=== PATIENT | female | born 1995 | race Two or more races ===

== ENCOUNTER 2022-07-27 14:52 | Inpatient (IN) | payer MEDICAID ==
[~2022-07-27] VITALS: Ht 162.6 cm; Wt 86.6 kg
--- NOTE | 2022-07-27 14:53 | NUR ---
TO ER BED 16, BIBRA 889 FROM HOME C/O LOWER ABDOMINAL PAIN X 3 HOURS. DENIES NAUSEA VOMITTING, DIARRHEA. 10/10 ON PAIN SCALE, AAOX4, BREATHING EVEN AND NON LABORED, AWAITING MD ORDERS
[2022-07-27] MEDS ORDERED: ACETAMINOPHEN ES 500 MG TABLET ONE (15:23)
[2022-07-27] MEDS ORDERED: ACETAMINOPHEN ES 500 MG TABLET PO ONE (15:30)
--- NOTE | 2022-07-27 15:32 | NUR ---
ESTABLISHED IV ACCESS 22G ON LEFT WRIST. BLOOD DRAWN AND SENT TO LAB.
[2022-07-27 15:51] LABS: BASOPHILS # (AUTO) 0.1 K/uL (0.0-0.2); BASOPHILS % (AUTO) 0.3 % (0.0-2.0); HEMATOCRIT 40 % (33-45); HEMOGLOBIN 12.9 g/dL (11.5-14.8); LYMPHOCYTES # (AUTO) 1.2 K/uL (0.8-4.8); LYMPHOCYTES % (AUTO) 5.1 % (20.0-44.0); MEAN CORPUSCULAR HGB CONC 33 g/dl (31.0-36.0); MEAN CORPUSCULAR VOLUME 86 fL (82-100); MONOCYTES # (AUTO) 0.6 K/uL (0.1-1.30); MONOCYTES % (AUTO) 2.5 % (2.0-12.0); NEUTROPHILS # (AUTO) 20.8 K/uL (1.8-8.9); NEUTROPHILS % (AUTO) 92.1 % (43.0-81.0); PLATELET COUNT (AUTO) 377 K/uL (150-450); RED BLOOD CELL COUNT(AUTO) 4.58 MIL/uL (4.0-5.2); WHITE BLOOD COUNT (AUTO) 22.6 K/uL (4.3-11.0)
[2022-07-27 16:06] LABS: CALCIUM, SERUM 9.2 mg/dL (8.5-10.1); CREATININE 0.6 mg/dL (0.6-1.3); POTASSIUM 4.8 mmol/L (3.5-5.1)
[2022-07-27 16:12] LABS: ALBUMIN 4.1 g/dL (3.4-5.0); BILIRUBIN,DIRECT 0.1 mg/dL (0.0-0.2); BILIRUBIN,TOTAL 0.5 mg/dL (0.2-1.0); TOTAL PROTEIN, SERUM 8.3 g/dL (6.4-8.2)
[2022-07-27] MEDS ORDERED: MORPHINE SULFATE INJ 2 MG/ML DISP.SYRIN IV ONE (16:30)
[2022-07-27] MEDS ORDERED: MORPHINE SULFATE INJ 4 MG/ML DISP.SYRIN ONE (16:31)
--- NOTE | 2022-07-27 16:59 | NUR ---
URINE COLLECTED AND SENT TO LAB
[2022-07-27] MEDS ORDERED: IV NS 0.9% 1,000 ML IV ONE ×2 (17:30→21:00)
[2022-07-27 17:31] LABS: BILIRUBIN,URINE 1+ (NEGATIVE); COLOR,URINE YELLOW (YELLOW); LEUKOCYTE ESTERASE ,URINE NEGATIVE (NEGATIVE); NITRITE, URINE NEGATIVE (NEGATIVE); PH,URINE 6.5 (5.0-8.0); PROTEIN,URINE NEGATIVE (NEGATIVE); UGLUCOSE NEGATIVE (NEGATIVE); UROBILINOGEN,URINE 0.2 EU/dL (0.2)
[2022-07-27 19:00] LABS: BACTERIA,URINE Moderate /HPF (None Seen); RBC,URINE 0-2 /HPF (0-2); SQUAMOUS EPITHELIAL CELL,UR Moderate /HPF (None Seen); WBC,URINE NONE SEEN /HPF (0-3)
[2022-07-27] MEDS ORDERED: TYL2T PO (19:16)
[2022-07-27] MEDS ORDERED: ONDA4TAB5 PO (19:16)
--- NOTE | 2022-07-27 20:52 | NUR ---
BP 85/51; DR. LAW SCHWARTZ AWARE
--- NOTE | 2022-07-27 21:40 | NUR ---
DR PRICE ON THE PHONE WITH DR WAN FOR OB CONSULT
--- NOTE | 2022-07-27 22:25 | NUR ---
BLOOD CONSENT FORM SIGNED BY PT
[2022-07-27 22:48] LABS: BASOPHILS % (AUTO) 0.2 % (0.0-2.0); EOSINOPHILS % (AUTO) 0.3 % (0.0-6.0); HEMATOCRIT 31 % (33-45); HEMOGLOBIN 10.3 g/dL (11.5-14.8); LYMPHOCYTES # (AUTO) 2.3 K/uL (0.8-4.8); LYMPHOCYTES % (AUTO) 15.3 % (20.0-44.0); MEAN CORPUSCULAR HGB CONC 33 g/dl (31.0-36.0); MEAN CORPUSCULAR VOLUME 85 fL (82-100); MONOCYTES # (AUTO) 0.6 K/uL (0.1-1.30); MONOCYTES % (AUTO) 4.2 % (2.0-12.0); PLATELET COUNT (AUTO) 309 K/uL (150-450); RED BLOOD CELL COUNT(AUTO) 3.67 MIL/uL (4.0-5.2)
--- NOTE | 2022-07-27 23:01 | NUR ---
DR PRICE ON THE PHONE WITH DR WAN
--- NOTE | 2022-07-27 23:11 | NUR ---
ADMINISTERED RHOGAM R DELTOID IM. VSS.
--- NOTE | 2022-07-27 23:18 | NUR ---
COVID ANTIGEN SWAB COLLECTED AND SENT TO LAB
[2022-07-28] MEDS ORDERED: ONDANSETRON HCL/PF 4 MG/2 ML VIAL IVP PRN
[2022-07-28] MEDS ORDERED: Z GUARD REMEDY 4 OZ OINT TP PRN
[2022-07-28] MEDS ORDERED: MAGNESIUM HYDROXIDE 30 ML UDC PO PRN
[2022-07-28] MEDS ORDERED: MAG HYDROX/AL HYDROX/SIMETH 30 ML UDC PO PRN
[2022-07-28] MEDS ORDERED: MORPHINE SULFATE INJ 2 MG/ML DISP.SYRIN IV PRN
--- NOTE | 2022-07-28 00:45 | NUR ---
REPORT GIVEN TO November RN FOR [facility]
--- NOTE | 2022-07-28 02:12 | NUR ---
PT TRANSFERRING TO [facility] VIA HOSPITAL PROTOCOL. VSS. ALL BELONGINGS WITH PT.
[2022-07-28 02:30] VITALS: BP 101/50
[2022-07-28] MEDS: ACETAMINOPHEN 325 MG TABLET PO PRN ×2 (02:51→16:25)
--- NOTE | 2022-07-28 03:25 | NUR ---
MS RUBBER TIRE AND TUBES SUPERVISOR NOTES - RECEIVED PATIENT FROM ED VIA GURNEY AT 0215 UNDER THE CARE OF SUJATA LENNON NP WITH DX OF ACUTE PELVIC PAIN SECONDARY TO POSSIBLE THREATENED OR MISSED MISCARRIAGE. PATIENT IS A/O X4, GREEN[place] SPEAKING. BREATHING EVEN AND NON-LABORED ON ROOM AIR. NOT IN APPARENT DISTRESS. VERBALIZED LOWER ABDOMINAL PAIN /. DENIES ACTIVE BLEEDING. HAS LEFT WRIST IV ACCESS #22G AND SALINE LOCKED. NO S/S OF INFILTRATION NOTED. PHYSICAL ASSESSMENT DONE, NO SKIN ISSUES. ALL BELONGINGS ACCOUNTED FOR. ORIENTED PATIENT TO UNIT AND STAFF. BSC PROVIDED. SAFETY PRECAUTIONS IN PLACE: BED LOCKED AND IN LOWEST POSITION, SIDE RAILS UP X2, CALL LIGHT WITHIN REACH. WILL CONTINUE PLAN OF CARE.
[2022-07-28 06:36] LABS: BASOPHILS % (AUTO) 0.4 % (0.0-2.0); EOSINOPHILS % (AUTO) 1.4 % (0.0-6.0); HEMATOCRIT 34 % (33-45); HEMOGLOBIN 11.1 g/dL (11.5-14.8); LYMPHOCYTES # (AUTO) 2.8 K/uL (0.8-4.8); LYMPHOCYTES % (AUTO) 25.9 % (20.0-44.0); MEAN CORPUSCULAR HGB CONC 33 g/dl (31.0-36.0); MEAN CORPUSCULAR VOLUME 86 fL (82-100); MONOCYTES # (AUTO) 0.7 K/uL (0.1-1.30); MONOCYTES % (AUTO) 6.4 % (2.0-12.0); NEUTROPHILS # (AUTO) 7.1 K/uL (1.8-8.9); NEUTROPHILS % (AUTO) 65.9 % (43.0-81.0); PLATELET COUNT (AUTO) 340 K/uL (150-450); RED BLOOD CELL COUNT(AUTO) 3.95 MIL/uL (4.0-5.2); WHITE BLOOD COUNT (AUTO) 10.8 K/uL (4.3-11.0)
--- NOTE | 2022-07-28 06:45 | NUR ---
MS RN CLOSING NOTES - PATIENT SLEEPING IN BED, EASY TO AROUSE. ABLE TO VERBALIZE NEEDS. NO SOB OR NOTED. NO ACUTE DISTRESS THROUGHOUT THE NIGHT. NO C/O PAIN OR DISCOMFORT AT THIS TIME. AFEBRILE. LEFT WRIST IV ACCESS INTACT, PATENT AND FLUSHING. ALL DUE MEDS GIVEN AND NEEDS ATTENDED. SAFETY PRECAUTIONS MAINTAINED. WILL ENDORSE TO NEXT SHIFT FOR [facility].
[2022-07-28 07:08] LABS: CALCIUM, SERUM 8.3 mg/dL (8.5-10.1); CREATININE 0.6 mg/dL (0.6-1.3); PHOSPHORUS 3.2 mg/dL (2.5-4.9); POTASSIUM 3.7 mmol/L (3.5-5.1)
[2022-07-28] MEDS ORDERED: PANTOPRAZOLE 40 MG TABLET.DR PO SCH (07:30)
[2022-07-28 08:00] VITALS: BP 97/44
--- NOTE | 2022-07-28 09:52 | NUR ---
A&OX4. ROOM AIR. DENIES PAIN TO PELVIC. NO BLEEDING NOTED. AMBULATE TO AND FROM BATHROOM WITH STANDBY ASSIST. ATE 85% OF BREAKFAST, NO S/S OF N/V NOTED. CURRENTLY IN BED IN SEMI- WOODS POSITION. CALL BUTT WITHIN REACH. NO CONCERNS NOTED. SUMA Bhandari RN
[2022-07-28 15:30] VITALS: BP 110/61
[2022-07-28 16:00] VITALS: BP_SYST 110; BP_SYST 158; BP_DIAS 61; BP_DIAS 86
--- NOTE | 2022-07-28 18:46 | NUR ---
DISCHARGED TO HOME. ALERT AND ABLE TO MAKE NEEDS KNOWN UPON DISCHARGE. MEDICATED FOR PAIN TO PELVIC AREA WITH TYLENOL, THERAPEUTIC EFFECTS NOTED. NO VAGINAL BLEEDING NOTED. DISCHARGE INSTRUCTIONS GIVEN AT BEDSIDE WITH SPOUSE PRESENT. PATIENT TO MAKE APPOINTMENT AT [facility] AND FOLLOW UP WITH OBGYN. LEVEL VIAL INSIDE GRINDER GAVE PATIENT ALL NECESSARY DOCUMENTS TO TAKE TO APPOINTMENTS. PATIENT WAS TRANSPORTED VIA W/V TO CAR BY [employer]. NO CONCERNS NOTED. ACCOMPANIED BY CELL PHONE AND ALL PERSONAL BELONGINGS. SUMA Bhandari RN, BSN
[2022-07-30 09:07] LABS: HEPATITIS Be AB Negative (Negative)
== END 2022-07-28 18:45 | disposition home or self-care (01) | DRG 566 ==
LOC: ER 14:55 → MED 07-28 00:32
PROVIDERS: ADMIT Nurse Practitioner Acute Care; ATTEND Nurse Practitioner Acute Care
DX: O20.0 Threatened abortion (principal); E66.9 Obesity, unspecified; O99.011 Anemia complicating pregnancy, first trimester; O99.211 Obesity complicating pregnancy, first trimester; Z3A.01 Less than 8 weeks gestation of pregnancy; Z37.9 Outcome of delivery, unspecified
CPT/HCPCS: 36415; 76805-TC; 80048-TC; 80076-TC; 81001; 83735-TC; 84100-TC; 84702-TC; 84703-TC; 85025-TC; 86704; 86705; 86706; 86707; 86803; 87081-TC; 87086-TC; 87340; 87350; C9803; G0378; J2270